=== PATIENT | female | born 1990 | race Hispanic/Latino ===

== ENCOUNTER 2022-09-24 09:27 | Emergency (ER) | payer BC ==
[~2022-09-24] VITALS: Ht 157.5 cm; Wt 108.0 kg
[2022-09-24 12:09] VITALS: O2SAT 98
== END 2022-09-24 11:46 | disposition home or self-care (01) ==
LOC: ER 09:32
DX: G40.909 Epilepsy, unspecified, not intractable, without status epilepticus (principal); R51.9 Headache, unspecified; M54.2 Cervicalgia
CPT/HCPCS: 70450; 72125; 99283